=== PATIENT | female | born 1935 | race Caucasian/White ===

== ENCOUNTER → 2016-03-17 | Outpatient (CLI) | payer BC ==
[~2016-03-17] MED LIST: ANT25 PO; ASCA500 PO; CLBCRM30 TOP; CRFUDL PO; FEXO1TAB46 PO; FLUT0.0529 INTNAS; LEVAAER2 INH; MULT-589 PO; NUTR-25 PO; PANT40TA PO; SCPTP TD
== END | disposition home or self-care (01) ==
LOC: C.PAPS 10:11
PROVIDERS: ATTEND Obstetrics & Gynecology
DX: Z01.419 Encounter for gynecological examination (general) (routine) without abnormal findings (principal)

== ENCOUNTER → 2016-07-10 | Outpatient (CLI) | payer BC | LOC: C.LABFOXMH 15:55 | PROVIDERS: ATTEND Internal Medicine | DX: R10.11 Right upper quadrant pain (principal) ==

== ENCOUNTER → 2016-07-11 | Outpatient (CLI) | payer BC ==
[2016-07-11 09:30] LABS: HEMATOCRIT 39.4 % (37-47); MEAN CORPUSCULAR HEMOGLOBIN 29.8 pg (25-34); MEAN CORPUSCULAR HGB CONC 32.7 g/dl (32-36); MEAN PLATELET VOLUME 9.8 fL (7.4-10.4); PLATELET COUNT 377 K/uL (130-400); RED BLOOD COUNT 4.33 M/uL (4.2-5.4); WHITE BLOOD COUNT 7.41 K/uL (4.8-10.8)
[2016-07-11 09:40] LABS: ALT/SGPT 21 U/L (12-78); AMYLASE 74 U/L (25-115); AST/SGOT 15 U/L (15-37); BLOOD UREA NITROGEN 15 mg/dl (7-18); BUN/CREATININE RATIO 19.9 (10-20); CALCIUM 8.6 mg/dl (8.5-10.1); CARBON DIOXIDE 29 mmol/L (21-32); CHLORIDE 107 mmol/L (98-107); CREATININE 0.74 mg/dl (0.60-1.20); GLUCOSE 82 mg/dl (70-99); POTASSIUM 4.4 mmol/L (3.5-5.1); SODIUM 141 mmol/L (136-145)
[2016-07-11 09:43] LABS: ALB/GLOB RATIO 1.1 (0.9-2); ALKALINE PHOSPHATASE 76 U/L (45-117)
== END ==
LOC: C.LABFOXMH 09:07
PROVIDERS: ATTEND Internal Medicine
DX: R10.11 Right upper quadrant pain (principal)

== ENCOUNTER → 2016-11-06 | Outpatient (CLI) | payer BC ==
--- NOTE | 2016-11-06 14:20 | MAMMOGRAPHY REPORT ---
BILATERAL DIGITAL SCREENING MAMMOGRAM WITH CAD: 11/06/2016 CLINICAL HISTORY: Routine screening. Patient has no complaints. TECHNIQUE: Current study was also evaluated with a Computer Aided Detection (CAD) system. Bilateral CC and MLO views were obtained. COMPARISON: Comparison is made to exams dated: 11/05/2015 mammogram, 10/31/2014 mammogram, 10/27/2013 abida mogram, 10/26/2012 mammogram, 10/24/2011 mammogram, and 10/10/2010 mammogram - [facility] er. BREAST COMPOSITION: The tissue of both breasts is almost entirely fatty. FINDINGS: No suspicious masses, calcifications, or areas of architectural distortion are noted in ei ther breast. There has been no significant interval change compared to prior exams. IMPRESSION: ACR BI-RADS CATEGORY 1: NEGATIVE There is no mammographic evidence of malignancy. A 1 year screening mammogram is recommended. The pa tient will receive written notification of the results. Approximately 10% of breast cancers are not detected with mammography. A negative mammographic report should not delay biopsy if a clinically suggestive mass is present. April Hernandez M.D. /:11/06/2016 12:10:21 Overnight Caregiver: Jessica FABIAN,R, M, [facility] letter sent: Normal 1/2 BI-RADS Code: ACR BI-RADS Category 1: Negative
== END | disposition home or self-care (01) ==
LOC: C.MAMM 10:02
PROVIDERS: ATTEND Internal Medicine
DX: Z12.31 Encounter for screening mammogram for malignant neoplasm of breast (principal)

== ENCOUNTER → 2016-12-29 | Outpatient (CLI) | payer BC | END | disposition home or self-care (01) | LOC: C.LABFOXMH 12:17 | PROVIDERS: ATTEND Internal Medicine | DX: R35.0 Frequency of micturition (principal); R30.0 Dysuria ==

== ENCOUNTER → 2017-01-27 | Outpatient (CLI) | payer BC | END | disposition home or self-care (01) | LOC: C.LABFOXMH 15:43 | PROVIDERS: ATTEND Internal Medicine | DX: R35.0 Frequency of micturition (principal); N30.91 Cystitis, unspecified with hematuria ==

== ENCOUNTER → 2017-03-18 | Outpatient (CLI) | payer BC ==
[2017-03-18 08:46] LABS: HEMATOCRIT 38.5 % (37-47); MEAN CELL VOLUME 90.4 fL (80-100); MEAN CORPUSCULAR HEMOGLOBIN 30.5 pg (25-34); MEAN CORPUSCULAR HGB CONC 33.8 g/dl (32-36); MEAN PLATELET VOLUME 9.7 fL (7.4-10.4); PLATELET COUNT 367 K/uL (130-400); RED CELL DISTRIBUTION WIDTH SD 46.2 fL (36.4-46.3); WHITE BLOOD COUNT 7.43 K/uL (4.8-10.8)
[2017-03-18 09:00] LABS: ALBUMIN 3.2 gm/dl (3.4-5.0); ALT/SGPT 25 U/L (12-78); BLOOD UREA NITROGEN 14 mg/dl (7-18); CALCIUM 9.3 mg/dl (8.5-10.1); CARBON DIOXIDE 27 mmol/L (21-32); CREATININE 0.71 mg/dl (0.60-1.20); GLUCOSE 77 mg/dl (70-99); POTASSIUM 4.3 mmol/L (3.5-5.1); SODIUM 138 mmol/L (136-145)
[2017-03-18 09:12] LABS: ALKALINE PHOSPHATASE 68 U/L (45-117); AST/SGOT 20 U/L (15-37); TOTAL PROTEIN 6.2 gm/dl (6.4-8.2)
== END | disposition home or self-care (01) ==
LOC: C.LABFOXMH 07:57
PROVIDERS: ATTEND Internal Medicine
DX: R00.2 Palpitations (principal)

== ENCOUNTER → 2017-04-02 | Outpatient (CLI) | payer BC | END | disposition home or self-care (01) | LOC: C.PAPS 09:07 | PROVIDERS: ATTEND Obstetrics & Gynecology | DX: N87.9 Dysplasia of cervix uteri, unspecified (principal); Z78.0 Asymptomatic menopausal state ==

== ENCOUNTER 2023-02-02 09:39 | Observation (INO) ==
--- NOTE | 2023-02-02 10:08 | Emergency Department Note ---
ED Provider Note History of Present Illness Chief Complaint: Abdominal Pain Time Seen by Provider: 02/02/23 09:59 This is an 87-year-old female with a history of bladder cancer, aortic valve stenosis, atrial fibrillation on Xarelto, who presents to the emergency department via EMS from [facility] for left lower abdominal pain that began yesterday and worsened today. Patient had some nausea and lightheadedness when she stood up this morning which resolved. She did not vomit. She persists with the constant, nonradiating pain. She is concerned about diverticulitis though denies any history of. She admits that she has not been eating or drinking as much as she normally should. Denies any chest pain or shortness of breath. No fevers or chills. No urinary symptoms or abnormal vaginal bleeding. Has had colonoscopies in the past. Home Medications Medication Instructions Recorded Confirmed Type losartan 100 mg tablet 100 mg PO QPM 08/30/20 02/02/23 History clobetasol 0.05 % topical ointment 1 applic topical BID PRN as needed 02/13/21 02/02/23 History levalbuterol tartrate 45 2 inh inhalation Q6H PRN shortness 07/11/21 02/02/23 History mcg/actuation aerosol inhaler of breath or wheezing amlodipine 5 mg tablet 5 mg PO HS 07/31/21 02/02/23 History oxybutynin chloride 5 mg tablet 5 mg PO BID PRN bladder spasms #20 08/04/22 02/02/23 Rx tabs rivaroxaban 20 mg tablet (Xarelto) 20 mg PO QPM #90 tabs 01/05/23 02/02/23 Rx ipratropium bromide 21 mcg (0.03 2 spray intranasal BID PRN 02/02/23 02/02/23 History %) nasal spray allergies levocetirizine 5 mg tablet (Xyzal) 5 mg PO DAILY PRN .Allergies 02/02/23 02/02/23 History levothyroxine 75 mcg tablet 75 mcg PO QAM 02/02/23 02/02/23 History triamcinolone acetonide 0.1 % 1 applic topical BID 02/02/23 02/02/23 History topical ointment Allergies Allergy/AdvReac Type Severity Reaction Status Date / Time latex Allergy Mild Rash Verified 02/02/23 13:06 atropine AdvReac Intermediate Sleepiness Verified 02/02/23 13:06 epinephrine AdvReac Intermediate Hyperactive,cold Verified 02/02/23 13:06 (was cold already),difficulty w/blood draw Past Med/Surg History Medical History (Updated 02/02/23 @ 12:47 by Rodo Correa MD) Hypothyroidism Bladder tumor Bladder cancer Osteoarthritis 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 Castellano HTN (hypertension) Surgical History History of cystoscopy History of colonoscopy History of Mohs micrographic surgery for skin cancer x3 History of wisdom tooth extraction History of tonsillectomy and adenoidectomy History of bilateral cataract extraction History of gynecologic surgery 2005 History of tubal ligation History of rotator cuff surgery right Hx of tubal ligation Family History Mother Cancer Family/Other Colorectal cancer Son Family history of reaction to anesthesia "comes out fighting" Denies family history of Ovarian cancer Prostate cancer Myocardial infarction Breast cancer Social History Smoking Status: Never smoker Second Hand Exposure: No; Do You Dip or Chew Tobacco: No; Tobacco Cessation Education Requested by Patient: No Hx Alcohol Use: Yes Alcohol type: beer and wine Hx Substance Use: No Preferred Language: [place] Communication Ability: Effective Vessel Traffic Officer Required: No Beliefs That Will Affect Care: None marital status: / Current Living Situation: Alf and Personal Care Facility Current Living Situation Comment: Independent living at [facility] current occupational status: retired Other Information That Helps Us Care for You: No Feels Safe at Home: Yes Safety Concerns: Feels Safe At This Time Assistive Devices: Glasses and Hearing Aid - Bilateral Physical Exam Vital Signs Vital Signs - 24 hr 02/02/23 09:42 02/02/23 09:49 02/02/23 10:16 Temperature 97.7 F Temperature Source Oral Pulse Rate 92 H 94 H Pulse Rate [Apical] Respiratory Rate 20 Respiratory Effort / Characteristics Respiratory Depth Blood Pressure 136/75 Blood Pressure [Right Arm] Blood Pressure Mean 95 Blood Pressure Mean [Right Arm] Pulse Oximetry 97 95 Oxygen Delivery Method Room Air Room Air Sepsis Recent Fever Within 48 Hours No Sepsis New/Unexplained Change in Mental Status N/A Sepsis Action Taken by Nursing No Action Required 02/02/23 11:48 Temperature Temperature Source Pulse Rate Pulse Rate [Apical] 86 Respiratory Rate 18 Respiratory Effort / Characteristics Non-Labored Respiratory Depth Normal Blood Pressure Blood Pressure [Right Arm] 140/85 Blood Pressure Mean Blood Pressure Mean [Right Arm] 103 Pulse Oximetry 98 Oxygen Delivery Method Room Air Sepsis Recent Fever Within 48 Hours Sepsis New/Unexplained Change in Mental Status Sepsis Action Taken by Nursing CONSTITUTIONAL: Well developed, well nourished, mildly uncomfortable, otherwise pleasant resting on the stretcher EYES: conjunctivae normal, extraocular muscles intact. No scleral icterus ENMT: External ears normal. Nose with normal external appearance, no congestion. Oral mucous membranes moist. NECK: Full active range of motion. RESPIRATORY: Breathing unlabored and symmetric. Lungs clear to auscultation bilaterally. No wheeze, rales, or rhonchi. CARDIOVASCULAR: Regular rate and rhythm. Systolic murmur ABDOMEN: Normal bowel sounds. There is reproducible tenderness in the left lower and left upper abdomen, more prominent in the left lower. MUSCULOSKELETAL: Moves all extremities at all joints without pain or difficulty. SKIN: [place], warm, dry. NEUROLOGIC: Awake, alert, oriented. Gaze is conjugate. Face symmetric, speech normal. Moves head and all four extremities spontaneously. Sensation and strength grossly intact. PSYCHIATRIC: Appropriate. Normal affect Course Administered Medications Lactated Ringer's (Lr) 1,000 mls @ 80 mls/hr IV .[id number] VEGA Stop: 02/03/23 03:49 Last Admin: 02/02/23 15:30 Dose: 80 mls/hr Documented By: ES Discontinued Medications Sodium Chloride (Nss) 500 mls @ 999 mls/hr IV .Q31M ONE Stop: 02/02/23 10:47 Last Infusion: 02/02/23 10:56 Dose: Infused Documented By: Admin: 02/02/23 10:23 Dose: 999 mls/hr Documented By: ML Piperacillin Sod/Tazobactam Sod (Zosyn) 4.5 gm in 100 mls @ 200 mls/hr IV NOW ONE Stop: 02/02/23 12:22 Last Infusion: 02/02/23 13:04 Dose: Infused Documented By: Admin: 02/02/23 12:24 Dose: 200 mls/hr Documented By: ML Ioversol (Optiray 320 500ml) 94 ml IV ONCE ONE Stop: 02/02/23 11:15 Last Admin: 02/02/23 11:15 Dose: 94 ml Documented By: SALUD Medical Decision Making Differential Diagnosis Diverticulitis, perforation, small bowel obstruction, appendicitis, ureterolithiasis, ischemia, UTI, pyelonephritis, vascular injury, among other pathology Laboratory Data 02/02/23 09:50 02/02/23 09:50 Lab Results 02/02/23 02/02/23 Range/Units 09:50 12:25 WBC 15.54 H (4.8-10.8) K/ul RBC 4.81 (4.20-5.40) M/uL Hgb 14.8 (12.0-16.0) g/dl Hct 43.5 (37.0-47.0) % MCV 90.4 (80.0-100.0) fL MCH 30.8 (25.0-34.0) pg MCHC 34.0 (32.0-36.0) g/dL RDW Std Deviation 46.9 H (36.4-46.3) fL RDW Coeff of Jarod 14.1 (11.5-14.5) % Plt Count 437 H (130-400) K/uL MPV 9.7 (9.4-12.4) fL Immature Gran % (Auto) 0.5 % Neut % (Auto) 80.8 % Lymph % (Auto) 9.5 % Story % (Auto) 8.2 % Eos % (Auto) 0.3 % Baso % (Auto) 0.7 % Neut # (Auto) 12.55 H (1.40-6.50) K/uL Lymph # (Auto) 1.48 (1.20-3.40) K/uL Story # (Auto) 1.28 H (0.11-0.59) K/uL Eos # (Auto) 0.04 (0.00-0.50) K/uL Baso # (Auto) 0.11 (0.00-0.20) K/uL Immature Gran # (Auto) 0.08 (0.01-0.20) K/uL Sodium 135 L (136-145) mmol/L Potassium 3.9 (3.5-5.1) mmol/L Chloride 100 (98-107) mmol/L Carbon Dioxide 26 (21-32) mmol/L Anion Gap 9 (3-11) BUN 14 (6-23) mg/dl Creatinine 0.79 (0.6-1.2) mg/dl Est Cr Clr Drug Dosing 39.9 ml/min Est GFR ( Amer) 76.9 ml/min Est GFR (Non-Af Amer) 66.4 ml/min BUN/Creatinine Ratio 17.7 (10-20) Glucose 99 (70-99(Fasting)) mg/dl Calcium 9.2 (8.6-10.3) mg/dl Total Bilirubin 2.1 H (0.2-1.0) mg/dl AST 21 (13-39) U/L ALT 14 (7-52) U/L Alkaline Phosphatase 74 (34-104) U/L Total Protein 7.5 (6.0-8.3) gm/dl Albumin 4.3 (3.4-5.0) gm/dl Globulin 3.2 (2.5-4.0) gm/dl Albumin/Globulin Ratio 1.3 (0.9-2) Lipase 15 (11-82) U/L SARS-CoV-2, RNA, NAAT NEGATIVE (NEGATIVE) Imaging Data Radiologist's Impression: Abdomen/Pelvis CT 02/02/23 10:[address] WITH IV CONTRAST CT DOSE: 635.38 mGy.cm HISTORY: Acute lower abdominal pain left lower abdominal pain x 2 days TECHNIQUE: Multiaxial CT images of the abdomen and pelvis were performed following the IV administration of 94 cc of Optiray, A dose lowering technique was utilized adhering to the principles of ALARA. COMPARISON STUDY: 08/14/2020 FINDINGS: Cardiomegaly with partially imaged pacer lead. Mild subsegmental bibasilar atelectasis. 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 There is mild dilation of the pancreatic duct within the mid to distal body and tail of the pancreas measuring up to 5 mm which is new from prior. The pancreatic duct within the head, neck and proximal body is normal. No obstructing stone or lesion identified clearly. Unremarkable gallbladder. The liver is within normal limits. Patency of the hepatic and portal veins. Unremarkable kidneys. No hydronephrosis. Unremarkable urinary bladder and uterus. Atherosclerosis of the aorta without aneurysm. Small amount of pelvic ascites. No bowel obstruction. Colonic diverticulosis. There is moderate circumferential wall thickening of the mid to distal descending colon with adjacent pericolonic stranding and inflated diverticulum with adjacent inflammatory stranding. No pneumoperitoneum or fluid collections. Normal appendix. Small fat and fluid filled right inguinal hernia. No acute fracture. Minimal lumbar levoscoliosis. IMPRESSION: 1. Acute diverticulitis within the mid to distal descending colon. Correlation could be made with follow-up colonoscopy after treatment course in order to exclude a mucosal lesion. 2. No pneumoperitoneum or abscess. 3. No bowel obstruction. 4. Small volume of pelvic ascites. 5. Nonspecific mild dilation of the pancreatic duct within the distal pancreatic body and tail without obstructing stone or lesion identified. Findings could be correlated with endoscopic ultrasound. 6. Additional findings as above. ACT 112: Negative or not required by law. The above report was generated using voice recognition software. It may contain grammatical, syntax or spelling errors. Electronically signed by: Jonny Olvera M.D. 02/02/2023 11:32 AM MDM Narrative 87-year-old female presents the emergency department with 2 days of left lower abdominal pain. She had an episode of lightheadedness and nausea when she stood up today. Admits to not eating or drinking very much recently. See above for further details. Overall patient well-appearing in no acute distress. Her vitals are reassuring. She does have significant reproducible tenderness in the left lower abdomen. Declined anything for pain. IV was inserted and labs were obtained. Gentle IV fluids were administered. Labs: There is a leukocytosis at 15. No anemia. Slight thrombocytosis, not significantly increased from her baseline. Renal function is normal. Total bilirubin elevated at 2.1 which is more elevated than baseline. Lipase is normal. AST and ALT are normal. CT abdomen pelvis with contrast was obtained demonstrating significant diverticulitis. She also has some mild dilation of the pancreatic duct. I suspect the acute diverticulitis is the source of her symptoms. The pancreatic findings seem to be more of an incidental finding though should require further evaluation. I reevaluated the patient at bedside. She was still doing well and did not require pain medication. Case was reviewed with ED attending Dr. Alex. As the patient resides at a group living facility, has not been eating or drinking very much, given her age and significant findings on CT, admission was recommended. Patient was comfortable with this plan. She was given a dose of Zosyn. Case was discussed with [facility] hospitalist group Dr. Correa who agrees to admit the patient for ongoing management. Impression Acute diverticulitis, Elevated bilirubin, Dilated pancreatic duct Discharge Plan Visit Data Chief Complaint: Abdominal Pain ED Provider: Jose Alex ED Midlevel Provider: Moiz Howard Discharge Problem: Acute diverticulitis, Elevated bilirubin, Dilated pancreatic duct Patient Disposition: Admitted As Inpatient Condition: Fair Discharge Instructions Interventions: ED Discharge Assessment Last Done: 02/02/23 16:13
[2023-02-02] MEDS ORDERED: SODIUM CHLORIDE 0.9% 500 ML IV ONE (10:17)
[2023-02-02 10:25] LABS: Basophils # (auto) 0.11 K/uL (0.00-0.20); Basophils % (auto) 0.7 %; Eosinophils # (auto) 0.04 K/uL (0.00-0.50); Eosinophils % (auto) 0.3 %; Hematocrit (blood only) 43.5 % (37.0-47.0); Hemoglobin 14.8 g/dl (12.0-16.0); Immature Granulocytes # (auto) 0.08 K/uL (0.01-0.20); Immature Granulocytes % (auto) 0.5 %; Lymphocytes # (auto) 1.48 K/uL (1.20-3.40); Lymphocytes % (auto) 9.5 %; Mean Corpuscular Hemoglobin 30.8 pg (25.0-34.0); Mean Corpuscular Volume 90.4 fL (80.0-100.0); Mean Platelet Volume 9.7 fL (9.4-12.4); Monocytes # (auto) 1.28 K/uL (0.11-0.59); Monocytes % (auto) 8.2 %; Neutrophils # (auto) 12.55 K/uL (1.40-6.50); Neutrophils % (auto) 80.8 %; Platelet Count 437 K/uL (130-400); RDW Coefficient of Variation 14.1 % (11.5-14.5); RDW Standard Deviation 46.9 fL (36.4-46.3); Red Blood Count 4.81 M/uL (4.20-5.40); White Blood Count 15.54 K/ul (4.8-10.8)
[2023-02-02 10:45] LABS: Albumin Globulin Ratio 1.3 (0.9-2); Albumin Level 4.3 gm/dl (3.4-5.0); BUN Creatinine Ratio 17.7 (10-20); Bilirubin,Total 2.1 mg/dl (0.2-1.0); Calcium 9.2 mg/dl (8.6-10.3); Creatinine Clr Calc Pharmacy 39.9 ml/min; Est GFR (African American) 76.9 ml/min; Est GFR (Non-African American) 66.4 ml/min; Globulin 3.2 gm/dl (2.5-4.0); Potassium 3.9 mmol/L (3.5-5.1); Total Protein 7.5 gm/dl (6.0-8.3)
[2023-02-02] MEDS ORDERED: OPTIRAY 320 500ml IV ONE (11:14)
--- NOTE | 2023-02-02 11:35 | CT Scan Report ---
ABDOMEN AND PELVIS CT WITH IV CONTRAST CT DOSE: 635.38 mGy.cm HISTORY: Acute lower abdominal pain left lower abdominal pain x 2 days TECHNIQUE: Multiaxial CT images of the abdomen and pelvis were performed following the IV administrat ion of 94 cc of Optiray, A dose lowering technique was utilized adhering to the principles of ALARA. COMPARISON STUDY: 08/14/2020 FINDINGS: Cardiomegaly with partially imaged pacer lead. Mild subsegmental bibasilar atelectasis. Unr emarkable spleen with peripherally calcified 8 mm splenic artery aneurysm. There is mild dilation of the pancreatic duct within the mid to distal body and tail of the pancreas measuring up to 5 mm which is new from prior. The pancreatic duct within the head, neck and proximal body is normal. No obstruc ting stone or lesion identified clearly. Unremarkable gallbladder. The liver is within normal limits. Patency of the hepatic and portal veins. Unremarkable kidneys. No hydronephrosis. Unremarkable urinary bladder and uterus. Atherosclerosis of the aorta without aneurysm. Small amount of pelvic ascites. No bowel obstruction. Colonic diverticulo sis. There is moderate circumferential wall thickening of the mid to distal descending colon with adj acent pericolonic stranding and inflated diverticulum with adjacent inflammatory stranding. No pneumo peritoneum or fluid collections. Normal appendix. Small fat and fluid filled right inguinal hernia. N o acute fracture. Minimal lumbar levoscoliosis. IMPRESSION: 1. Acute diverticulitis within the mid to distal descending colon. Correlation could be made with fol low-up colonoscopy after treatment course in order to exclude a mucosal lesion. 2. No pneumoperitoneum or abscess. 3. No bowel obstruction. 4. Small volume of pelvic ascites. 5. Nonspecific mild dilation of the pancreatic duct within the distal pancreatic body and tail withou t obstructing stone or lesion identified. Findings could be correlated with endoscopic ultrasound. 6. Additional findings as above. ACT 112: Negative or not required by law. The above report was generated using voice recognition software. It may contain grammatical, syntax o r spelling errors. Electronically signed by: Jonny Olvera M.D. 02/02/2023 11:32 AM
--- NOTE | 2023-02-02 11:45 | Emergency Department Note ---
ED Visit Note Physician Evaluation Note: I was consulted by the Moiz Howard PA-C. I personally approveed the management plan and take responsibility for the patient management. I performed a substantive portion of the visit. This includes the aspects of: Reviewed plan with Moiz and discussed patient's degree of pain and not eating or drinking. -I independently interpreted the following studies: CT abdomen pelvis with IV contrast shows sigmoid diverticulitis no evidence of perforation. Jose Alex MD
[2023-02-02] MEDS ORDERED: PIPERACILLIN/TAZOBACTAM 4.5 GM/100 ML BAG IV ONE (11:53)
--- NOTE | 2023-02-02 12:13 | History & Physical Report ---
Date of Service February 02, 2023 Assessment & Plan (1) Acute diverticulitis: Plan: Acute diverticulitis CTA/P with mid to distal colon diverticulitis without abscess or perforation Leukocytosis of 15 on admission Clinically with left lower quadrant pain Treated with Zosyn on admission, continue Last colonoscopy 08/2020 with . Case showed one 5 mm polyp in the transverse snare, diverticulosis without diverticulitis, nonbleeding internal hemorrhoids. Pathology showed tubular adenoma - She does have a history of ESBL E. coli infection which is resistant to fluoroquinolones/cephalosporins but has been sensitive to Zosyn, Unasyn, and Augmentin. 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 Transaminases are normal, lipase normal, bilirubin is with new trace elevation. Gallbladder is without evidence of cholecystitis or stones.? Transient/passed stone. F/u with GI for EUS, CMP trended. (3) Aortic valve stenosis: Plan: Moderate to severe Echo 11/2022: EF 55-60%. Grade 2 diastolic dysfunction. No wall motion abnormalities. Moderate to severe aortic stenosis, valve index 0.24. Moderate mitral regurg, moderate to severe TR, trace [place], normal CVP No limiting symptoms, near euvolemic. No acute change in management at this time (4) PAF (paroxysmal atrial fibrillation): Plan: Patient has been A-fib approximately 82% of the time at last interrogation, previously had less than 1% burden. Overall average of 70% Patient did self discontinue amiodarone due to feeling poorly and lightheaded while on this. Does feel better since stopping this. Will follow on medical telemetry, rate controlled on admission - Continue Xarelto (5) Pacemaker: Plan: With history of A-fib, type II heart block. 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 Surgical specimen 09/18/2020 with low-grade papillary urothelial carcinoma - small recurrences noted 2021 nov, fulgurated and completed 6 week induction BCG Bladder scan as needed (8) Hypothyroidism: Plan: Synthroid continued Plan DVT prophylaxis: Anticoagulated Disposition: Medical telemetry Diet: Clears CODE STATUS: DNR, DNI discussed with patient on admission History of Present Illness Primary Care Provider: Kia Lobo is a 87-year-old female with a past medical history of aortic stenosis, A-fib on Xarelto, bladder cancer who presents with left lower quadrant abdominal pain for 2 days with lightheadedness and dizziness. She has had decreased appetite. She has not had bleeding. On ER assessment she has a leukocytosis of 15, no MOON, elevated bilirubin without transaminitis, normal lipase and CTA/P shows acute mid to distal colon diverticulitis without abscess, perforation/pneumoperitoneum, or obstruction. Patient does show nonspecific mild dilation of the pancreatic duct within the distal pancreatic body and tail without obstructing stone or lesion noted. Sondra woke up yesterday morning with pain in her left lower quadrant. She was very concerneda bout diverticulitis and abscess as she has known people who were ill with that. Tried to wait it out, felt worse this morning and came in for evaluation No fever, chills, or sweats No diarrhea or constipation, BMs normally a 2-3x per day. No black or bloody, with a vegetarian diet tend to be more slender but brown. Diminished appetite since yesterday, mild nausea, no vomiting. No history of gallbladder stones or problems Has had trouble with dizziness due to a medicine but does not know which. NO dizziness Heart is 'not my greatest asset but doing ok.' No orthopnea. No leg swelling. No problems with fluid build up. Has had some extertional shortness of breath, but this actually feels better in the last few weeks since a medicine was stopped. No history of diuretic use. No kidney problems No diabetes Medical History: Reviewed Medications: Reviewed. Took levothyroxine this morning only,r est at night which she took yesterday. Surgical History: Reviewed Family history: Reviewed Allergies: Reviewed. 'some medicines work toowell. Atropine/epi with HTN and hyperacticity'. +latex allergy Social History: Former smoker, quit 1974. ETOH about 5-7 days per week, 1 glass of wine. Code Status: DNR/DNI ___ Allergies Allergy/AdvReac Type Severity Reaction Status Date / Time latex Allergy Mild Rash Verified 02/02/23 13:06 atropine AdvReac Intermediate Sleepiness Verified 02/02/23 13:06 epinephrine AdvReac Intermediate Hyperactive,cold Verified 02/02/23 13:06 (was cold already),difficulty w/blood draw Home Medications Medication Instructions Recorded Confirmed Type losartan 100 mg tablet 100 mg PO QPM 08/30/20 02/02/23 History clobetasol 0.05 % topical ointment 1 applic topical BID PRN as needed 02/13/21 02/02/23 History levalbuterol tartrate 45 2 inh inhalation Q6H PRN shortness 07/11/21 02/02/23 History mcg/actuation aerosol inhaler of breath or wheezing amlodipine 5 mg tablet 5 mg PO HS 07/31/21 02/02/23 History oxybutynin chloride 5 mg tablet 5 mg PO BID PRN bladder spasms #20 08/04/22 02/02/23 Rx tabs rivaroxaban 20 mg tablet (Xarelto) 20 mg PO QPM #90 tabs 01/05/23 02/02/23 Rx ipratropium bromide 21 mcg (0.03 2 spray intranasal BID PRN 02/02/23 02/02/23 History %) nasal spray allergies levocetirizine 5 mg tablet (Xyzal) 5 mg PO DAILY PRN .Allergies 02/02/23 02/02/23 History levothyroxine 75 mcg tablet 75 mcg PO QAM 02/02/23 02/02/23 History triamcinolone acetonide 0.1 % 1 applic topical BID 02/02/23 02/02/23 History topical ointment Past Med/Surg History Medical History (Updated 02/02/23 @ 12:47 by Rodo Correa MD) Hypothyroidism Bladder tumor Bladder cancer Osteoarthritis 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 Castellano HTN (hypertension) Surgical History History of cystoscopy History of colonoscopy History of Mohs micrographic surgery for skin cancer x3 History of wisdom tooth extraction History of tonsillectomy and adenoidectomy History of bilateral cataract extraction History of gynecologic surgery 2005 History of tubal ligation History of rotator cuff surgery right Hx of tubal ligation Family History Mother Cancer Family/Other Colorectal cancer Son Family history of reaction to anesthesia "comes out fighting" Denies family history of Ovarian cancer Prostate cancer Myocardial infarction Breast cancer Social History Smoking Status: Never smoker Second Hand Exposure: No; Do You Dip or Chew Tobacco: No; Tobacco Cessation Education Requested by Patient: No Hx Alcohol Use: Yes Alcohol type: beer and wine Hx Substance Use: No Preferred Language: Tajik Communication Ability: Effective 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 NAD. Cooperative. HEENT: Atraumatic, normocephalic. Pulm: CTAB A&P. -wheezes, -rales, -rhonchi. Symmetrical chest rise. No increased work of breathing. No respiratory distress. Cardiac: irir, +c-d murmur. Radial pulses intact and symmetrical. Abdominal: LLQ TTP. No rebound/guarding. Soft. No RUQ/epigastric TTP. BS present. Ext: warm, dry. Results & Data Results & Data Vital Signs (Past 12 Hours) Vital Signs Temp Pulse Pulse Resp BP BP Pulse Ox 02/02/23 11:48 86 18 140/85 98 02/02/23 10:16 95 02/02/23 09:49 94 H 02/02/23 09:42 36.5 C 92 H 20 136/75 97 O2 Del Method 02/02/23 11:48 Room Air 02/02/23 10:16 Room Air 02/02/23 09:49 02/02/23 09:42 Room Air PG Care Time/CCT Total # of Minutes Spent Total Time Spent with Patient: Total time spent is greater than 50% in coordination of care (as documented) at patient's floor/unit and/or counseling patient: Coding Level of Care Code 59001 INT INP/OBS CARE 2MIN Diagnoses Acute diverticulitis K57.92 Dilated pancreatic duct K86.89 Aortic valve stenosis I35.0 PAF (paroxysmal atrial fibrillation) I48.0 Pacemaker Z95.0 HTN (hypertension) I10 Hypertension type: unspecified Transitional cell carcinoma C68.9 Hypothyroidism E03.9 (6) HTN (hypertension) Hypertension type: unspecified Qualified Code(s): I10 - Essential (primary) hypertension
[2023-02-02] MEDS ORDERED: MoRPHine SULFATE 2 MG/ML CARP IV PRN (15:20)
[2023-02-02] MEDS ORDERED: MoRPHine SULFATE 4 MG/ML 1 ML CARP\\VIAL IV PRN (15:20)
[2023-02-02] MEDS ORDERED: LACTATED RINGER'S 1,000 ML IV SCH (15:20)
[2023-02-02] MEDS ORDERED: ACETAMINOPHEN 1,000 MG/100 ML VIAL IV PRN (15:20)
[2023-02-02 19:27] LABS: Appearance Urine Clear (Clear); Bacteria Urine Automated Negative (Negative); Bilirubin Urine Negative (Negative); Blood Urine Negative (Negative); Color Urine Yellow; Glucose Urine UA Negative (Negative); Ketones Urine 1+ (Negative); Leukocyte Esterase Urine 1+ (Negative); Nitrite Urine Negative (Negative); Protein Urine Negative (Negative); RBC Urine Automated 0-4 /hpf (0-4); Specific Gravity Urine > 1.045 (1.000-1.030); Urobilinogen Urine Negative (Negative); pH Urine 5.5 (4.5-7.5)
[2023-02-02] MEDS: LOSARTAN POTASSIUM 50 MG TAB PO SCH (20:02)
[2023-02-02] MEDS: amLODIPine BESYLATE 5 MG TAB PO SCH (20:02)
[2023-02-02] MEDS: RIVAROXABAN 20 MG TAB PO SCH (20:02)
[2023-02-03] MEDS: LEVOTHYROXINE SODIUM 75 MCG TABLET PO SCH (05:36)
[2023-02-03 07:05] LABS: Basophils # (auto) 0.09 K/uL (0.00-0.20); Basophils % (auto) 0.9 %; Eosinophils # (auto) 0.19 K/uL (0.00-0.50); Eosinophils % (auto) 1.9 %; Hematocrit (blood only) 36.7 % (37.0-47.0); Hemoglobin 12.4 g/dl (12.0-16.0); Immature Granulocytes # (auto) 0.05 K/uL (0.01-0.20); Immature Granulocytes % (auto) 0.5 %; Lymphocytes # (auto) 1.95 K/uL (1.20-3.40); Lymphocytes % (auto) 19.3 %; Mean Corpuscular Hemoglobin 30.8 pg (25.0-34.0); Mean Corpuscular Hgb Conc 33.8 g/dL (32.0-36.0); Mean Corpuscular Volume 91.1 fL (80.0-100.0); Mean Platelet Volume 9.7 fL (9.4-12.4); Monocytes % (auto) 9.9 %; Neutrophils % (auto) 67.5 %; Platelet Count 378 K/uL (130-400); RDW Standard Deviation 46.7 fL (36.4-46.3); Red Blood Count 4.03 M/uL (4.20-5.40); White Blood Count 10.08 K/ul (4.8-10.8)
[2023-02-03 07:33] LABS: BUN Creatinine Ratio 12.9 (10-20); Creatinine Clr Calc Pharmacy 50.9 ml/min; Est GFR (African American) 92.7 ml/min; Est GFR (Non-African American) 79.9 ml/min; Potassium 4.1 mmol/L (3.5-5.1)
[2023-02-03] MEDS ORDERED: PIPER/TAZO 4.5g in D5W MINI-B 100 ML IV ONE (14:00)
--- NOTE | 2023-02-03 18:06 | Hospitalist Progress Note ---
Date of Service February 03, 2023 Assessment & Plan (1) Acute diverticulitis: Plan: Acute diverticulitis CTA/P with mid to distal colon diverticulitis without abscess or perforation Leukocytosis of 15 on admission Clinically with left lower quadrant pain Treated with Zosyn on admission, continue Improving Leukocytosis resolved Last colonoscopy 08/2020 with Case showed one 5 mm polyp in the transverse snare, diverticulosis without diverticulitis, nonbleeding internal hemorrhoids. Pathology showed tubular adenoma - She does have a history of ESBL E. coli infection which is resistant to fluoroquinolones/cephalosporins but has been sensitive to Zosyn, Unasyn, and Augmentin. Target transition to Augmentin if clinically progressing - Zofran, tylenol, breakthrough morphine bank operations officer (2) Dilated pancreatic duct: Plan: Pancreatic ductal dilation Nonspecific mild dilation of the pancreatic duct new compared to 07/2020 5 mm within the distal pancreatic body without obstructing stone or lesion. Transaminases are normal, lipase normal, bilirubin is with new trace elevation. Gallbladder is without evidence of cholecystitis or stones.? Transient/passed stone. F/u with GI for EUS, CMP trended. (3) Aortic valve stenosis: Plan: Moderate to severe Echo 11/2022: EF 55-60%. Grade 2 diastolic dysfunction. No wall motion abnormalities. Moderate to severe aortic stenosis, valve index 0.24. Moderate mitral regurg, moderate to severe TR, trace [place], normal CVP No limiting symptoms, near euvolemic. No acute change in management at this time (4) PAF (paroxysmal atrial fibrillation): Plan: Patient has been A-fib approximately 82% of the time at last interrogation, previously had less than 1% burden. Overall average of 70% Patient did self discontinue amiodarone due to feeling poorly and lightheaded while on this. Does feel better since stopping this. Will follow on medical telemetry, rate controlled on admission - Continue Xarelto (5) Pacemaker: Plan: With history of A-fib, type II heart block. 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 Left lower quadrant pain is improving. She denies any chest pain or shortness of breath. Tolerating a clear liquid diet. Review of Systems Review of Systems: All systems reviewed & are unremarkable except as noted in Subjective Physical Exam Physical Exam: general: Awake, conversant Heart: S1, S2/regular rate and rhythm, no murmur rubs or gallops Lungs: Clear to auscultation bilaterally. Normal effort Abdomen: Soft/nondistended. mild tenderness to palpation in the left lower quadrant.No hepatosplenomegaly Extremities: No clubbing/cyanosis. No edema Behavior: Appropriate, cooperative Results & Data Results & Data Vital Signs (Past 12 Hours) Vital Signs Temp Pulse Pulse Resp BP Pulse Ox O2 Del Method 02/03/23 15:27 72 02/03/23 15:09 36.4 C L 87 18 154/89 H 95 Room Air 02/03/23 11:09 36.7 C 93 H 18 151/75 H 97 Room Air 02/03/23 07:31 83 02/03/23 07:30 36.9 C 78 18 127/77 98 Room Air Laboratory Results Abnormal lab results 02/02/23 02/03/23 Range/Units Unknown 06:17 RBC 4.03 L (4.20-5.40) M/uL Hct 36.7 L (37.0-47.0) % RDW Std Deviation 46.7 H (36.4-46.3) fL Neut # (Auto) 6.80 H (1.40-6.50) K/uL [place] # (Auto) 1.00 H (0.11-0.59) K/uL Ur Specific [place] > 1.045 H (1.000-1.030) Urine Ketones 1+ H (Negative) Ur Leukocyte Esterase 1+ H (Negative) Urine WBC (Auto) 10-30 H (0-5) /hpf U Epithel Cells (Auto) 5-10 H (0-5) /lpf PG Care Time/CCT Total # of Minutes Spent Total Time Spent with Patient: Total time spent is greater than 50% in coordination of care (as documented) at patient's floor/unit and/or counseling patient: Coding Level of Care Code 19897 SUB INP/OBS CARE Diagnoses Acute diverticulitis K57.92 Dilated pancreatic duct K86.89 Aortic valve stenosis I35.0 PAF (paroxysmal atrial fibrillation) I48.0 Pacemaker Z95.0 HTN (hypertension) I10 Hypertension type: unspecified Transitional cell carcinoma C68.9 Hypothyroidism E03.9 (6) HTN (hypertension) Hypertension type: unspecified Qualified Code(s): I10 - Essential (primary) hypertension
[2023-02-03] MEDS: RIVAROXABAN 20 MG TAB PO SCH (20:05)
[2023-02-03] MEDS: LOSARTAN POTASSIUM 50 MG TAB PO SCH (20:05)
[2023-02-03] MEDS: PIPERACILLIN/TAZOBACTAM 4.5 GM in DEXTROSE 5% MINI-B 100 ML IV SCH (20:05)
[2023-02-03] MEDS: amLODIPine BESYLATE 5 MG TAB PO SCH (20:05)
[2023-02-04] MEDS: PIPERACILLIN/TAZOBACTAM 4.5 GM in DEXTROSE 5% MINI-B 100 ML IV SCH ×3 (03:41→20:00)
[2023-02-04] MEDS: LEVOTHYROXINE SODIUM 75 MCG TABLET PO SCH (06:02)
[2023-02-04 07:25] LABS: Basophils % (auto) 1.2 %; Eosinophils # (auto) 0.28 K/uL (0.00-0.50); Eosinophils % (auto) 3.3 %; Hematocrit (blood only) 36.9 % (37.0-47.0); Hemoglobin 12.3 g/dl (12.0-16.0); Immature Granulocytes # (auto) 0.03 K/uL (0.01-0.20); Immature Granulocytes % (auto) 0.4 %; Lymphocytes # (auto) 1.83 K/uL (1.20-3.40); Lymphocytes % (auto) 21.9 %; Mean Corpuscular Hemoglobin 30.4 pg (25.0-34.0); Mean Corpuscular Hgb Conc 33.3 g/dL (32.0-36.0); Mean Corpuscular Volume 91.1 fL (80.0-100.0); Mean Platelet Volume 9.6 fL (9.4-12.4); Monocytes # (auto) 0.94 K/uL (0.11-0.59); Monocytes % (auto) 11.2 %; Neutrophils # (auto) 5.19 K/uL (1.40-6.50); Platelet Count 401 K/uL (130-400); RDW Coefficient of Variation 13.7 % (11.5-14.5); RDW Standard Deviation 46.3 fL (36.4-46.3); Red Blood Count 4.05 M/uL (4.20-5.40); White Blood Count 8.37 K/ul (4.8-10.8)
[2023-02-04 07:43] LABS: BUN Creatinine Ratio 10.6 (10-20); Calcium 8.8 mg/dl (8.6-10.3); Creatinine Clr Calc Pharmacy 47.8 ml/min; Est GFR (African American) 90.8 ml/min; Est GFR (Non-African American) 78.3 ml/min; Potassium 3.5 mmol/L (3.5-5.1)
--- NOTE | 2023-02-04 15:05 | Hospitalist Progress Note ---
Date of Service February 04, 2023 Assessment & Plan (1) Acute diverticulitis: Plan: Acute diverticulitis CTA/P with mid to distal colon diverticulitis without abscess or perforation Leukocytosis of 15 on admission Clinically with left lower quadrant pain Treated with Zosyn on admission, continue Improving Leukocytosis resolved Last colonoscopy 08/2020 with Case showed one 5 mm polyp in the transverse snare, diverticulosis without diverticulitis, nonbleeding internal hemorrhoids. Pathology showed tubular adenoma - She does have a history of ESBL E. coli infection which is resistant to fluoroquinolones/cephalosporins but has been sensitive to Zosyn, Unasyn, and Augmentin. Target transition to Augmentin if clinically progressing - Zofran, tylenol, breakthrough morphine health care consultant Advance diet to a solid diet (2) Dilated pancreatic duct: Plan: Pancreatic ductal dilation Nonspecific mild dilation of the pancreatic duct new compared to 07/2020 5 mm within the distal pancreatic body without obstructing stone or lesion. Transaminases are normal, lipase normal, bilirubin is with new trace elevation. Gallbladder is without evidence of cholecystitis or stones.? Transient/passed stone. F/u with GI for EUS, CMP trended. (3) Aortic valve stenosis: Plan: Moderate to severe Echo 11/2022: EF 55-60%. Grade 2 diastolic dysfunction. No wall motion abnormalities. Moderate to severe aortic stenosis, valve index 0.24. Moderate mitral regurg, moderate to severe TR, trace [place], normal CVP No limiting symptoms, near euvolemic. No acute change in management at this time (4) PAF (paroxysmal atrial fibrillation): Plan: Patient has been A-fib approximately 82% of the time at last interrogation, previously had less than 1% burden. Overall average of 70% Patient did self discontinue amiodarone due to feeling poorly and lightheaded while on this. Does feel better since stopping this. Will follow on medical telemetry, rate controlled on admission - Continue Xarelto (5) Pacemaker: Plan: With history of A-fib, type II heart block. 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 She says that her left lower quadrant pain is improving. Denies chest pain or shortness of breath. Denies any pain in the upper abdomen. Review of Systems Review of Systems: All systems reviewed & are unremarkable except as noted in Subjective Physical Exam Physical Exam: general: Awake, conversant Heart: S1, S2/regular rate and rhythm, no murmur rubs or gallops Lungs: Clear to auscultation bilaterally. Normal effort Abdomen: Soft/nondistended. mild tenderness to palpation in the left lower quadrant.No hepatosplenomegaly Extremities: No clubbing/cyanosis. No edema Behavior: Appropriate, cooperative Results & Data Results & Data Vital Signs (Past 12 Hours) Vital Signs Temp Pulse Pulse Resp BP BP Pulse Ox 02/04/23 14:57 81 02/04/23 10:41 36.5 C 58 L 17 138/85 96 02/04/23 10:36 75 02/04/23 07:37 36.4 C L 67 17 144/82 H 96 02/04/23 03:25 36.5 C 89 16 157/81 H 95 O2 Del Method 02/04/23 14:57 02/04/23 10:41 Room Air 02/04/23 10:36 02/04/23 07:37 Room Air 02/04/23 03:25 Room Air Laboratory Results Abnormal lab results 02/04/23 Range/Units 06:25 RBC 4.05 L (4.20-5.40) M/uL Hct 36.9 L (37.0-47.0) % Plt Count 401 H (130-400) K/uL [place] # (Auto) 0.94 H (0.11-0.59) K/uL PG Care Time/CCT Total # of Minutes Spent Total Time Spent with Patient: Total time spent is greater than 50% in coordination of care (as documented) at patient's floor/unit and/or counseling patient: Coding Level of Care Code 35077 SUB INP/OBS CARE 2/35MIN Diagnoses Acute diverticulitis K57.92 Dilated pancreatic duct K86.89 Aortic valve stenosis I35.0 PAF (paroxysmal atrial fibrillation) I48.0 Pacemaker Z95.0 HTN (hypertension) I10 Hypertension type: unspecified Transitional cell carcinoma C68.9 Hypothyroidism E03.9 (6) HTN (hypertension) Hypertension type: unspecified Qualified Code(s): I10 - Essential (primary) hypertension
[2023-02-04] MEDS ORDERED: RIVAROXABAN 20 MG TAB PO SCH (16:30)
[2023-02-04] MEDS ORDERED: RIVAROXABAN 15 MG TAB PO SCH (16:30)
[2023-02-04] MEDS: amLODIPine BESYLATE 5 MG TAB PO SCH (20:01)
[2023-02-04] MEDS: LOSARTAN POTASSIUM 50 MG TAB PO SCH (20:01)
[2023-02-05] MEDS: PIPERACILLIN/TAZOBACTAM 4.5 GM in DEXTROSE 5% MINI-B 100 ML IV SCH (04:01)
[2023-02-05] MEDS: LEVOTHYROXINE SODIUM 75 MCG TABLET PO SCH (06:05)
[2023-02-05 06:48] LABS: Basophils # (auto) 0.11 K/uL (0.00-0.20); Basophils % (auto) 1.3 %; Eosinophils # (auto) 0.41 K/uL (0.00-0.50); Eosinophils % (auto) 4.8 %; Hematocrit (blood only) 39.8 % (37.0-47.0); Hemoglobin 13.1 g/dl (12.0-16.0); Immature Granulocytes # (auto) 0.04 K/uL (0.01-0.20); Immature Granulocytes % (auto) 0.5 %; Lymphocytes # (auto) 2.03 K/uL (1.20-3.40); Lymphocytes % (auto) 23.5 %; Mean Corpuscular Hemoglobin 29.8 pg (25.0-34.0); Mean Corpuscular Hgb Conc 32.9 g/dL (32.0-36.0); Mean Corpuscular Volume 90.7 fL (80.0-100.0); Mean Platelet Volume 9.5 fL (9.4-12.4); Monocytes # (auto) 0.79 K/uL (0.11-0.59); Monocytes % (auto) 9.2 %; Neutrophils # (auto) 5.25 K/uL (1.40-6.50); Neutrophils % (auto) 60.7 %; Platelet Count 436 K/uL (130-400); RDW Coefficient of Variation 13.5 % (11.5-14.5); Red Blood Count 4.39 M/uL (4.20-5.40); White Blood Count 8.63 K/ul (4.8-10.8)
[2023-02-05 07:09] LABS: BUN Creatinine Ratio 11.6 (10-20); Creatinine Clr Calc Pharmacy 45.7 ml/min; Est GFR (African American) 89.5 ml/min; Est GFR (Non-African American) 77.2 ml/min; Potassium 3.4 mmol/L (3.5-5.1)
[2023-02-05] MEDS ORDERED: POTASSIUM CHLORIDE CRTAB 20 MEQ TABCR PO STA (08:37)
--- NOTE | 2023-02-05 10:17 | Discharge Summary ---
Date of Service February 05, 2023 Admission HPI Per Admitting Provider Lashell is a 87-year-old female with a past medical history of aortic stenosis, A-fib on Xarelto, bladder cancer who presents with left lower quadrant abdominal pain for 2 days with lightheadedness and dizziness. She has had decreased appetite. She has not had bleeding. On ER assessment she has a leukocytosis of 15, no MOON, elevated bilirubin without transaminitis, normal lipase and CTA/P shows acute mid to distal colon diverticulitis without abscess, perforation/pneumoperitoneum, or obstruction. Patient does show nonspecific mild dilation of the pancreatic duct within the distal pancreatic body and tail without obstructing stone or lesion noted. Sondra woke up yesterday morning with pain in her left lower quadrant. She was very concerneda bout diverticulitis and abscess as she has known people who were ill with that. Tried to wait it out, felt worse this morning and came in for evaluation No fever, chills, or sweats No diarrhea or constipation, BMs normally a 2-3x per day. No black or bloody, with a vegetarian diet tend to be more slender but brown. Diminished appetite since yesterday, mild nausea, no vomiting. No history of gallbladder stones or problems Has had trouble with dizziness due to a medicine but does not know which. NO dizziness Heart is 'not my greatest asset but doing ok.' No orthopnea. No leg swelling. No problems with fluid build up. Has had some extertional shortness of breath, but this actually feels better in the last few weeks since a medicine was stopped. No history of diuretic use. No kidney problems No diabetes Medical History: Reviewed Medications: Reviewed. Took levothyroxine this morning only,r est at night which she took yesterday. Surgical History: Reviewed Family history: Reviewed Allergies: Reviewed. 'some medicines work toowell. Atropine/epi with HTN and hyperacticity'. +latex allergy Social History: Former smoker, quit 1974. ETOH about 5-7 days per week, 1 glass of wine. Code Status: DNR/DNI ___ Admission Exam Per Admitting Provider General: A&Ox3. NAD. Cooperative. HEENT: Atraumatic, normocephalic. Pulm: CTAB A&P. -wheezes, -rales, -rhonchi. Symmetrical chest rise. No increased work of breathing. No respiratory distress. Cardiac: irir, +c-d murmur. Radial pulses intact and symmetrical. Abdominal: LLQ TTP. No rebound/guarding. Soft. No RUQ/epigastric TTP. BS present. Ext: warm, dry. Principal Diagnosis Acute diverticulitis Dilated pancreatic duct possibly secondary to a passed stone Discharge Exam general: Awake, conversant Heart: S1, S2/regular rate and rhythm, no murmur rubs or gallops Lungs: Clear to auscultation bilaterally. Normal effort Abdomen: Soft/nondistended. mild tenderness to palpation in the left lower quadrant.No hepatosplenomegaly Extremities: No clubbing/cyanosis. No edema Behavior: Appropriate, cooperative Discharge Data Allergies Allergy/AdvReac Type Severity Reaction Status Date / Time latex Allergy Mild Rash Verified 02/02/23 13:06 atropine AdvReac Intermediate Sleepiness Verified 02/02/23 13:06 epinephrine AdvReac Intermediate Hyperactive,cold Verified 02/02/23 13:06 (was cold already),difficulty w/blood draw Consultations 02/02/23 12:17 ED Decision to Admit Stat Ordered Studies 02/02/23 10:17 CT Abd and Pelvis [CT abd pelvis IV con only] Stat Hospital Course (1) Acute diverticulitis: Acute diverticulitis CTA/P with mid to distal colon diverticulitis without abscess or perforation Leukocytosis of 15 on admission Clinically with left lower quadrant pain Treated with Zosyn Improving Leukocytosis resolved Tolerating solid meals Discharged on Augmentin (2) Dilated pancreatic duct: Pancreatic ductal dilation Nonspecific mild dilation of the pancreatic duct new compared to 07/2020 5 mm within the distal pancreatic body without obstructing stone or lesion. Transaminases are normal, lipase normal, bilirubin is with new trace elevation. Gallbladder is without evidence of cholecystitis or stones.? Transient/passed stone. F/u with GI for EUS. Patient has been given instructions to follow-up with her GI physician. (3) Aortic valve stenosis: Moderate to severe Echo 11/2022: EF 55-60%. Grade 2 diastolic dysfunction. No wall motion abnormalities. Moderate to severe aortic stenosis, valve index 0.24. Moderate mitral regurg, moderate to severe TR, trace NE, normal CVP No limiting symptoms, near euvolemic. No acute change in management at this time (4) PAF (paroxysmal atrial fibrillation): Patient has been A-fib approximately 82% of the time at last interrogation, previously had less than 1% burden. Overall average of 70% Patient did self discontinue amiodarone due to feeling poorly and lightheaded while on this. Does feel better since stopping this. Will follow on medical telemetry, rate controlled on admission - Continue Xarelto (5) Pacemaker: With history of A-fib, type II heart block. 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 - small recurrences noted 2020, fulgurated and completed 6 week induction BCG Bladder scan as needed (8) Hypothyroidism: Synthroid continued Plan Discharge today Total Time Total Time Spent Total Time Spent (In Minutes): 35 Discharge Plan Discharge Items Patient Disposition: Home - Self-Care Reason For Visit: DIVERTICULITIS Discharge Diagnosis: Acute diverticulitis Dilated pancreatic duct, possibly related to a passed stone Condition on Discharge: Fair Activity: Resume your previous activity Non-emergency contact: Primary Care Provider Call non-emergency contact if: you have any medication questions and your symptoms worsen Follow-up/Referrals: Kwesi Christianson DO [Physician] - 03/05/23 8:30 am (Please arrive 15 minutes before scheduled appointment. Thank you!) Kia Casas [Primary Care Provider] - Diet: Low Fiber Addtl Attending Provider Instructions: Advised to follow-up with PCP in 1 week Advised to follow-up with your GI doctor in 1 month regarding the pancreatic ductal dilatation that was noted. It may have been related to a passed stone. Pending Studies at Discharge: No Stand-Alone Forms: My [facility] Medications and DC Order Prescriptions: New amoxicillin-pot clavulanate [Augmentin] 500-125 mg tablet 1 tab PO BID 4 Days Qty: 8 0RF Continued oxybutynin chloride 5 mg tablet 5 mg PO BID PRN (Reason: bladder spasms) Qty: 20 1RF Xarelto 20 mg tablet 20 mg PO QPM Qty: 90 3RF Rx Instructions: TAKE 1 TABLET BY MOUTH ONCE DAILY levalbuterol tartrate 45 mcg/actuation HFA aerosol inhaler 2 inh inhalation Q6H PRN (Reason: shortness of breath or wheezing) clobetasol 0.05 % ointment 1 applic topical BID PRN (Reason: as needed) amlodipine 5 mg tablet 5 mg PO HS losartan 100 mg Tablet 100 mg PO QPM levothyroxine 75 mcg tablet 75 mcg PO QAM levocetirizine [Xyzal] 5 mg Tablet 5 mg PO DAILY PRN (Reason: .Allergies) triamcinolone acetonide 0.1 % ointment 1 applic topical BID ipratropium bromide 21 mcg (0.03 %) spray,non-aerosol 2 spray intranasal BID PRN (Reason: allergies) Rx Instructions: administer into each nostril Discharge Orders: Discharge Order (Routine); Ordered 02/05/23 Ordered By: Otilio Dave/Other Patient Handouts: Low-Fiber Diet, Diverticulosis and Diverticulitis Admission Data Admit Date/Time: 02/02/23 12:52 Attending Provider: Otilio Barakat Admit Provider: Rodo Correa Primary Care Provider: Kia Casas Other Providers: Rodo Correa Other Interventions: Discharge Summary Assessment (RN) Last Done: 02/05/23 10:55 Coding Level of Care Code 22199 INP/OBS DISCH >30 MIN Diagnoses Acute diverticulitis K57.92 Dilated pancreatic duct K86.89 Aortic valve stenosis I35.0 PAF (paroxysmal atrial fibrillation) I48.0 Pacemaker Z95.0 HTN (hypertension) I10 Hypertension type: unspecified Transitional cell carcinoma C68.9 Hypothyroidism E03.9
== END 2023-02-05 13:03 | disposition home or self-care (01) ==
LOC: EDINP 09:39 → ED 09:39 → SUATTDRO 12:52 → 2S 16:13